=== PATIENT | female | born 1940 | race African-American/Black ===

== ENCOUNTER 2017-06-23 06:10 | Inpatient (IN) | payer MEDICAID ==
[~2017-06-23] VITALS: Ht 162.6 cm; Wt 78.1 kg
[~2017-06-23 06:10] MED LIST: ACET-2178 GT; ATOR40TA70 GT; CLOP75TA16 GT; DEXT15SY3 GT; FOLI-43 GT; HYDR-4133 GT; HYDR-523 GT; IPRA3AMP9 IH; KEPPSOL GT; LINA145C GT; LOSA100T14 GT; MAGN400C GT; METO-293 GT; MULT1TAB11 GT; POLY15DR40 BOTHEYE; POTA40LI2 GT; SACC250C GT; SENN8.6T60 GT; SIME1LIQ GT
[2017-06-23 07:32] LABS: BASOPHILS % 0.4 % (0.0-2.0); EOSINOPHILS % 0.1 % (0.0-5.0); HEMATOCRIT. 44.1 % (36.0-48.0); HEMOGLOBIN. 14.5 g/dL (12.0-16.0); LYMPHOCYTES % 8.8 % (20.0-50.0); MEAN CORPUSCULAR VOLUME 91.2 fL (81.0-99.0); MEAN PLATELET VOLUME 10.9 fl (7.4-10.4); MONOCYTES % 8.3 % (2.0-8.0); NEUTROPHILS % 82.4 % (40.0-76.0); PLATELET 143 x1000/uL (130-400); RED BLOOD CELL COUNT 4.83 mill/uL (4.2-5.4)
[2017-06-23 07:36] LABS: CHLORIDE 103 mEq/L (98-107)
[2017-06-23 07:44] LABS: CARBON DIOXIDE 33 mEq/L (21-32)
[2017-06-23] MEDS ORDERED: SODIUM CHLORIDE 0.9% 1,000 ML IV ONE (08:45)
[2017-06-23] MEDS ORDERED: KCL 20MEQ/100ML PREMIX 100 ML IV ONE (09:15)
[2017-06-23] MEDS ORDERED: POTASSIUM CHLORIDE INJ 20 MEQ in SODIUM CHLORIDE 0.9% 100 ML IV ONE (10:00)
[2017-06-23 10:30] VITALS: BP 158/86
[2017-06-23 11:00] VITALS: BP 136/70
[2017-06-23] MEDS ORDERED: ACETAMINOPHEN 325MG TABLET GT PRN (13:00)
[2017-06-23 15:34] LABS: CARBON DIOXIDE 32 mEq/L (21-32); CHLORIDE 105 mEq/L (98-107)
[2017-06-23 16:00] VITALS: BP 136/70
[2017-06-23] MEDS: DOCUSATE SODIUM SUGAR FREE 100MG/10ML UDC GT SCH (17:00)
[2017-06-23 20:00] VITALS: BP 131/65
[2017-06-23] MEDS ORDERED: IPRATROPIUM/ALBUTEROL 0.5-3(2.5)MG/3ML NEB INH PRN (20:00)
[2017-06-23] MEDS ORDERED: DIPHENHYDRAMINE 50MG/ML VIAL IV PRN (20:00)
[2017-06-23] MEDS ORDERED: ONDANSETRON HCL 4MG/2ML VIAL IV PRN (20:00)
[2017-06-23] MEDS ORDERED: DEXTROSE 50% WATER 50ML SYRINGE IV PRN (20:00)
[2017-06-23] MEDS ORDERED: LOPERAMIDE 2 MG/10 ML UDC GT PRN (20:15)
[2017-06-23] MEDS ORDERED: POTASSIUM CHLORIDE 20MEQ/PACKET GT NR (20:25)
[2017-06-23] MEDS ORDERED: MAGNESIUM 2 G PREMIX 50 ML IV PRN (20:30)
[2017-06-23] MEDS ORDERED: LEVETIRACETAM 500MG/5ML CUP GT SCH (21:00)
[2017-06-23] MEDS ORDERED: AMLODIPINE 5MG TABLET GT SCH (21:00)
[2017-06-23] MEDS: BLOOD SUGAR DIAGNOSTIC STRIP TEST SCH (21:49)
[2017-06-23] MEDS: LEVETIRACETAM 500MG/5ML CUP GT SCH (21:53)
[2017-06-23] MEDS: AMLODIPINE 5MG TABLET GT SCH (21:54)
[2017-06-23] MEDS: HEPARIN 5000 UNITS/ML VIAL SUBCUT SCH (21:57)
[2017-06-23] MEDS ORDERED: POTASSIUM CHLORIDE INJ 40 MEQ in DEXT 5% WATER 500 ML IV NR (22:00)
[2017-06-23] MEDS: INSULIN LISPRO 100 UNITS/ML SUBCUT SCH (22:12)
[2017-06-23] MEDS: LEVOFLOXACIN 500MG PREMIX 100 ML IV SCH (22:17)
[2017-06-23] MEDS: ACETAMINOPHEN 650MG/20.3ML UDC GT PRN (23:26)
[2017-06-24] VITALS: BP 126/65
[2017-06-24 01:20] LABS: CLARITY URINE CLEAR (CLEAR); COLOR URINE YELLOW (YELLOW); KETONES URINE NEGATIVE (NEGATIVE); LEUKOCYTE ESTERASE URINE NEGATIVE (NEGATIVE); NITRITE URINE NEGATIVE (NEGATIVE); OCCULT BLOOD URINE NEGATIVE (NEGATIVE); PROTEIN URINE 2+ (NEGATIVE); SPECIFIC GRAVITY URINE 1.024 (1.005-1.030)
[2017-06-24] MEDS: BLOOD SUGAR DIAGNOSTIC STRIP TEST SCH ×4 (02:45→17:43)
[2017-06-24] MEDS: INSULIN LISPRO 100 UNITS/ML SUBCUT SCH ×4 (02:55→17:50)
[2017-06-24 04:00] VITALS: BP 108/63
[2017-06-24] MEDS: IPRATROPIUM/ALBUTEROL 0.5-3(2.5)MG/3ML NEB HHN SCH ×5 (04:25→20:30)
[2017-06-24 08:00] VITALS: BP 126/73
[2017-06-24] MEDS: POLYVINYL ALCOHOL OPHTH DROPS 15ML BOTHEYE SCH ×3 (09:05→17:32)
[2017-06-24] MEDS: POTASSIUM CHLORIDE 20MEQ/PACKET GT SCH (09:06)
[2017-06-24] MEDS: AMLODIPINE 5MG TABLET GT SCH ×2 (09:06→21:00)
[2017-06-24] MEDS: DOCUSATE SODIUM SUGAR FREE 100MG/10ML UDC GT SCH ×2 (09:06→17:30)
[2017-06-24] MEDS: LEVETIRACETAM 500MG/5ML CUP GT SCH ×2 (09:06→21:21)
[2017-06-24] MEDS: FAMOTIDINE 20MG/2ML VIAL IV SCH (09:07)
[2017-06-24] MEDS: HEPARIN 5000 UNITS/ML VIAL SUBCUT SCH ×2 (09:07→21:22)
[2017-06-24 12:00] VITALS: BP 126/56
[2017-06-24] MEDS ORDERED: ACETYLCYSTEINE 200MG/ML 20% VIAL 4ML GT NR (12:00)
[2017-06-24] MEDS ORDERED: INSULIN LISPRO 100 UNITS/ML SUBCUT SCH (12:50)
[2017-06-24 16:00] VITALS: BP 138/75
[2017-06-24 20:00] VITALS: BP 99/51
[2017-06-24] MEDS: GUAIFENESIN 200MG/10ML SUGAR FREE UDC GT SCH (21:21)
[2017-06-24] MEDS: ACETAMINOPHEN 650MG/20.3ML UDC GT PRN (21:21)
[2017-06-24] MEDS: LEVOFLOXACIN 500MG PREMIX 100 ML IV SCH (22:01)
[2017-06-25] VITALS: BP_SYST 115; BP_SYST 118; BP_DIAS 65
[2017-06-25] MEDS: BLOOD SUGAR DIAGNOSTIC STRIP TEST SCH ×5 (00:29→23:37)
[2017-06-25] MEDS: INSULIN LISPRO 100 UNITS/ML SUBCUT SCH ×5 (00:34→23:18)
[2017-06-25] MEDS: ACETYLCYSTEINE 200MG/ML 20% VIAL 4ML INH SCH ×3 (01:12→21:03)
[2017-06-25] MEDS: GUAIFENESIN 200MG/10ML SUGAR FREE UDC GT SCH ×4 (02:30→21:27)
[2017-06-25] MEDS: IPRATROPIUM/ALBUTEROL 0.5-3(2.5)MG/3ML NEB HHN SCH ×3 (03:08→14:10)
[2017-06-25 04:00] VITALS: BP 127/70
[2017-06-25 08:00] VITALS: BP 138/61
[2017-06-25] MEDS: LEVETIRACETAM 500MG/5ML CUP GT SCH ×2 (10:06→21:28)
[2017-06-25] MEDS: FAMOTIDINE 20MG/2ML VIAL IV SCH (10:07)
[2017-06-25] MEDS: DOCUSATE SODIUM SUGAR FREE 100MG/10ML UDC GT SCH ×2 (10:07→17:00)
[2017-06-25] MEDS: POTASSIUM CHLORIDE 20MEQ/PACKET GT SCH (10:08)
[2017-06-25] MEDS: HEPARIN 5000 UNITS/ML VIAL SUBCUT SCH ×2 (10:10→21:28)
[2017-06-25] MEDS: POLYVINYL ALCOHOL OPHTH DROPS 15ML BOTHEYE SCH ×3 (10:20→17:12)
[2017-06-25] MEDS: AMLODIPINE 5MG TABLET GT SCH ×2 (10:20→21:27)
[2017-06-25 12:00] VITALS: BP 106/55
[2017-06-25 20:00] VITALS: BP 133/63
[2017-06-25] MEDS: LEVOFLOXACIN 500MG PREMIX 100 ML IV SCH (21:27)
[2017-06-25] MEDS: OSELTAMIVIR PHOSPHATE 6 MG/1 ML GT SCH (21:28)
[2017-06-25] MEDS ORDERED: INSULIN DETEMIR UD 100 UNITS/ML SYR SUBCUT SCH (22:00)
[2017-06-25] MEDS: METHYLPREDNISOLONE SOD SUCC 125 MG/2 ML VIAL IV SCH (22:59)
[2017-06-25] MEDS: INSULIN DETEMIR UD 100 UNITS/ML SYR SUBCUT SCH (23:18)
[2017-06-26] VITALS: BP 122/76
[2017-06-26 00:28] LABS: BASOPHILS % 0.4 % (0.0-2.0); EOSINOPHILS % 1.2 % (0.0-5.0); HEMATOCRIT. 36.7 % (36.0-48.0); HEMOGLOBIN. 11.7 g/dL (12.0-16.0); LYMPHOCYTES % 19.2 % (20.0-50.0); MEAN CORPUSCULAR HEMOGLOBIN 29.3 pg (28.0-32.0); MEAN CORPUSCULAR VOLUME 91.3 fL (81.0-99.0); MEAN PLATELET VOLUME 12.5 fl (7.4-10.4); MONOCYTES % 14.3 % (2.0-8.0); NEUTROPHILS % 64.9 % (40.0-76.0); PLATELET 137 x1000/uL (130-400); RED BLOOD CELL COUNT 4.01 mill/uL (4.2-5.4); RED CELL DISTRIBUTION WIDTH 13.2 % (11.6-14.6)
[2017-06-26 00:52] LABS: CARBON DIOXIDE 31 mEq/L (21-32); CHLORIDE 113 mEq/L (98-107)
[2017-06-26] MEDS: IPRATROPIUM/ALBUTEROL 0.5-3(2.5)MG/3ML NEB HHN SCH ×4 (01:10→21:15)
[2017-06-26] MEDS: ACETYLCYSTEINE 200MG/ML 20% VIAL 4ML INH SCH ×2 (01:12→14:55)
[2017-06-26] MEDS: GUAIFENESIN 200MG/10ML SUGAR FREE UDC GT SCH ×4 (03:08→20:42)
[2017-06-26 04:00] VITALS: BP 136/66
[2017-06-26] MEDS: METHYLPREDNISOLONE SOD SUCC 125 MG/2 ML VIAL IV SCH ×3 (06:40→22:06)
[2017-06-26] MEDS: INSULIN LISPRO 100 UNITS/ML SUBCUT SCH ×3 (06:42→18:34)
[2017-06-26] MEDS: BLOOD SUGAR DIAGNOSTIC STRIP TEST SCH ×3 (06:49→18:28)
[2017-06-26 08:00] VITALS: BP 121/62
[2017-06-26] MEDS: OSELTAMIVIR PHOSPHATE 6 MG/1 ML GT SCH ×2 (09:00→20:42)
[2017-06-26] MEDS: LEVETIRACETAM 500MG/5ML CUP GT SCH ×2 (09:07→20:44)
[2017-06-26] MEDS: DOCUSATE SODIUM SUGAR FREE 100MG/10ML UDC GT SCH ×2 (09:07→18:24)
[2017-06-26] MEDS: POLYVINYL ALCOHOL OPHTH DROPS 15ML BOTHEYE SCH ×3 (09:08→18:25)
[2017-06-26] MEDS: POTASSIUM CHLORIDE 20MEQ/PACKET GT SCH (09:08)
[2017-06-26] MEDS: FAMOTIDINE 20MG/2ML VIAL IV SCH (09:08)
[2017-06-26] MEDS: HEPARIN 5000 UNITS/ML VIAL SUBCUT SCH ×2 (09:09→20:42)
[2017-06-26] MEDS: AMLODIPINE 5MG TABLET GT SCH ×2 (11:39→22:05)
[2017-06-26 12:00] VITALS: BP 145/60
[2017-06-26 16:00] VITALS: BP 112/58
[2017-06-26] MEDS ORDERED: SODIUM CHLORIDE 0.45% 1,000 ML IV SCH (18:30)
[2017-06-26 20:00] VITALS: BP 144/60
[2017-06-26] MEDS: LEVOFLOXACIN 500MG PREMIX 100 ML IV SCH (22:20)
[2017-06-26] MEDS: INSULIN DETEMIR UD 100 UNITS/ML SYR SUBCUT SCH (22:23)
[2017-06-27] VITALS: BP 141/71
[2017-06-27] MEDS: INSULIN LISPRO 100 UNITS/ML SUBCUT SCH ×5 (00:24→23:49)
[2017-06-27] MEDS: BLOOD SUGAR DIAGNOSTIC STRIP TEST SCH ×5 (00:24→23:17)
[2017-06-27] MEDS: GUAIFENESIN 200MG/10ML SUGAR FREE UDC GT SCH ×4 (02:06→23:20)
[2017-06-27] MEDS: ACETYLCYSTEINE 200MG/ML 20% VIAL 4ML INH SCH ×3 (02:10→16:22)
[2017-06-27] MEDS: IPRATROPIUM/ALBUTEROL 0.5-3(2.5)MG/3ML NEB HHN SCH ×4 (02:10→21:25)
[2017-06-27 04:00] VITALS: BP 138/68
[2017-06-27] MEDS: METHYLPREDNISOLONE SOD SUCC 125 MG/2 ML VIAL IV SCH ×3 (06:50→22:35)
[2017-06-27 08:00] VITALS: BP 151/66
[2017-06-27] MEDS: LEVETIRACETAM 500MG/5ML CUP GT SCH ×2 (08:46→23:26)
[2017-06-27] MEDS: DOCUSATE SODIUM SUGAR FREE 100MG/10ML UDC GT SCH ×2 (08:46→17:42)
[2017-06-27] MEDS: FAMOTIDINE 20MG/2ML VIAL IV SCH (08:47)
[2017-06-27] MEDS: POLYVINYL ALCOHOL OPHTH DROPS 15ML BOTHEYE SCH ×3 (08:47→17:42)
[2017-06-27] MEDS: POTASSIUM CHLORIDE 20MEQ/PACKET GT SCH (08:48)
[2017-06-27] MEDS: OSELTAMIVIR PHOSPHATE 6 MG/1 ML GT SCH ×2 (08:49→23:19)
[2017-06-27] MEDS: ACETAMINOPHEN 650MG/20.3ML UDC GT PRN ×2 (08:50→23:26)
[2017-06-27] MEDS: HEPARIN 5000 UNITS/ML VIAL SUBCUT SCH ×2 (08:51→23:27)
[2017-06-27] MEDS: AMLODIPINE 5MG TABLET GT SCH ×2 (08:57→23:25)
[2017-06-27 11:44] LABS: CARBON DIOXIDE 31 mEq/L (21-32); CHLORIDE 110 mEq/L (98-107)
[2017-06-27 12:00] VITALS: BP 136/64
[2017-06-27 16:00] VITALS: BP 139/68
[2017-06-27 20:00] VITALS: BP 162/81
[2017-06-27] MEDS ORDERED: ACETYLCYSTEINE 100MG/ML 10% VIAL 4ML INH SCH (22:00)
[2017-06-27] MEDS: LEVOFLOXACIN 500MG PREMIX 100 ML IV SCH (22:35)
[2017-06-27] MEDS: CLONIDINE 0.1MG TABLET GT PRN (23:25)
[2017-06-27] MEDS: INSULIN DETEMIR UD 100 UNITS/ML SYR SUBCUT SCH (23:32)
[2017-06-28] VITALS: BP 131/89
[2017-06-28] MEDS: IPRATROPIUM/ALBUTEROL 0.5-3(2.5)MG/3ML NEB HHN SCH ×4 (03:58→20:53)
[2017-06-28 04:00] VITALS: BP 139/64
[2017-06-28] MEDS ORDERED: DEXT 5% WATER 500 ML IV ONE (06:30)
[2017-06-28] MEDS: GUAIFENESIN 200MG/10ML SUGAR FREE UDC GT SCH ×4 (07:29→21:30)
[2017-06-28] MEDS: BLOOD SUGAR DIAGNOSTIC STRIP TEST SCH ×4 (07:30→23:13)
[2017-06-28 08:00] VITALS: BP 151/79
[2017-06-28] MEDS: POLYVINYL ALCOHOL OPHTH DROPS 15ML BOTHEYE SCH ×3 (08:02→17:36)
[2017-06-28] MEDS: LEVETIRACETAM 500MG/5ML CUP GT SCH ×2 (08:02→21:31)
[2017-06-28] MEDS: DOCUSATE SODIUM SUGAR FREE 100MG/10ML UDC GT SCH ×2 (08:02→17:36)
[2017-06-28] MEDS: AMLODIPINE 5MG TABLET GT SCH ×2 (08:02→22:34)
[2017-06-28] MEDS: HEPARIN 5000 UNITS/ML VIAL SUBCUT SCH ×2 (08:03→21:31)
[2017-06-28] MEDS: FAMOTIDINE 20MG/2ML VIAL IV SCH (08:03)
[2017-06-28] MEDS: OSELTAMIVIR PHOSPHATE 6 MG/1 ML GT SCH ×2 (08:03→21:31)
[2017-06-28] MEDS: INSULIN LISPRO 100 UNITS/ML SUBCUT SCH ×4 (08:06→23:13)
[2017-06-28] MEDS: ACETAMINOPHEN 650MG/20.3ML UDC GT PRN (09:33)
[2017-06-28 12:00] VITALS: BP 146/66
[2017-06-28 16:00] VITALS: BP 148/75
[2017-06-28 19:03] LABS: CARBON DIOXIDE 34 mEq/L (21-32); CHLORIDE 105 mEq/L (98-107)
[2017-06-28 20:00] VITALS: BP 131/65
[2017-06-28] MEDS: LEVOFLOXACIN 500MG PREMIX 100 ML IV SCH (21:30)
[2017-06-28] MEDS ORDERED: POTASSIUM CHLORIDE 20MEQ/PACKET GT NR (21:51)
[2017-06-28] MEDS: INSULIN DETEMIR UD 100 UNITS/ML SYR SUBCUT SCH (23:13)
[2017-06-29] VITALS: BP 132/70
[2017-06-29] MEDS: IPRATROPIUM/ALBUTEROL 0.5-3(2.5)MG/3ML NEB HHN SCH ×4 (01:38→20:25)
[2017-06-29] MEDS: GUAIFENESIN 200MG/10ML SUGAR FREE UDC GT SCH ×4 (03:00→20:22)
[2017-06-29 04:00] VITALS: BP 161/95
[2017-06-29] MEDS: CLONIDINE 0.1MG TABLET GT PRN (05:18)
[2017-06-29] MEDS: BLOOD SUGAR DIAGNOSTIC STRIP TEST SCH ×4 (05:25→23:04)
[2017-06-29] MEDS: INSULIN LISPRO 100 UNITS/ML SUBCUT SCH ×4 (06:01→23:04)
[2017-06-29 08:00] VITALS: BP 125/72
[2017-06-29] MEDS: POLYVINYL ALCOHOL OPHTH DROPS 15ML BOTHEYE SCH ×3 (08:31→16:11)
[2017-06-29] MEDS: DOCUSATE SODIUM SUGAR FREE 100MG/10ML UDC GT SCH ×2 (08:31→16:11)
[2017-06-29] MEDS: LEVETIRACETAM 500MG/5ML CUP GT SCH ×2 (08:31→20:24)
[2017-06-29] MEDS: AMLODIPINE 5MG TABLET GT SCH ×2 (08:32→20:22)
[2017-06-29] MEDS: FAMOTIDINE 20MG/2ML VIAL IV SCH (08:32)
[2017-06-29] MEDS: HEPARIN 5000 UNITS/ML VIAL SUBCUT SCH ×2 (08:32→22:04)
[2017-06-29] MEDS: OSELTAMIVIR PHOSPHATE 6 MG/1 ML GT SCH ×2 (08:32→20:23)
[2017-06-29] MEDS: ACETAMINOPHEN 650MG/20.3ML UDC GT PRN (08:37)
[2017-06-29 12:00] VITALS: BP 122/67
[2017-06-29 16:00] VITALS: BP 124/67
[2017-06-29] MEDS ORDERED: POTASSIUM CHLORIDE 20MEQ/PACKET GT NR (19:30)
[2017-06-29 20:00] VITALS: BP 142/79
[2017-06-29] MEDS: LEVOFLOXACIN 500MG PREMIX 100 ML IV SCH (22:04)
[2017-06-29] MEDS: INSULIN DETEMIR UD 100 UNITS/ML SYR SUBCUT SCH (23:04)
[2017-06-30] VITALS: BP 115/74
[2017-06-30] MEDS: IPRATROPIUM/ALBUTEROL 0.5-3(2.5)MG/3ML NEB HHN SCH ×4 (01:11→21:34)
[2017-06-30] MEDS: GUAIFENESIN 200MG/10ML SUGAR FREE UDC GT SCH ×4 (02:20→21:12)
[2017-06-30 04:00] VITALS: BP 131/78
[2017-06-30] MEDS: BLOOD SUGAR DIAGNOSTIC STRIP TEST SCH ×3 (06:03→17:34)
[2017-06-30] MEDS: INSULIN LISPRO 100 UNITS/ML SUBCUT SCH ×3 (06:05→17:36)
[2017-06-30 07:22] LABS: HEMATOCRIT 37.7 % (36.0-48.0); HEMOGLOBIN 12.3 g/dL (12.0-16.0); MEAN CORPUSCULAR HEMOGLOBIN 29.7 pg (28.0-32.0); PLATELET 167 x1000/uL (130-400); RED BLOOD CELL COUNT 4.15 mill/uL (4.2-5.4); RED CELL DISTRIBUTION WIDTH 13.7 % (11.6-14.6)
[2017-06-30 07:54] LABS: CARBON DIOXIDE 36 mEq/L (21-32); CHLORIDE 106 mEq/L (98-107)
[2017-06-30 08:00] VITALS: BP 119/71
[2017-06-30] MEDS: DOCUSATE SODIUM SUGAR FREE 100MG/10ML UDC GT SCH ×2 (09:23→21:27)
[2017-06-30] MEDS: LEVETIRACETAM 500MG/5ML CUP GT SCH ×2 (09:23→21:12)
[2017-06-30] MEDS: AMLODIPINE 5MG TABLET GT SCH ×2 (09:23→21:13)
[2017-06-30] MEDS: OSELTAMIVIR PHOSPHATE 6 MG/1 ML GT SCH (09:24)
[2017-06-30] MEDS: FAMOTIDINE 20MG/2ML VIAL IV SCH (09:24)
[2017-06-30] MEDS: POLYVINYL ALCOHOL OPHTH DROPS 15ML BOTHEYE SCH ×3 (09:28→21:12)
[2017-06-30] MEDS: HEPARIN 5000 UNITS/ML VIAL SUBCUT SCH ×2 (09:28→21:13)
[2017-06-30 12:00] VITALS: BP 114/63
[2017-06-30 16:00] VITALS: BP 123/72
[2017-06-30 20:00] VITALS: BP 133/67
[2017-06-30] MEDS: LEVOFLOXACIN 500MG PREMIX 100 ML IV SCH (21:14)
[2017-07-01] VITALS: BP 123/73
[2017-07-01] MEDS: BLOOD SUGAR DIAGNOSTIC STRIP TEST SCH ×5 (00:18→23:10)
[2017-07-01] MEDS: INSULIN LISPRO 100 UNITS/ML SUBCUT SCH ×5 (00:23→23:26)
[2017-07-01] MEDS: INSULIN DETEMIR UD 100 UNITS/ML SYR SUBCUT SCH ×2 (00:23→23:26)
[2017-07-01] MEDS: IPRATROPIUM/ALBUTEROL 0.5-3(2.5)MG/3ML NEB HHN SCH ×4 (02:02→21:00)
[2017-07-01] MEDS: GUAIFENESIN 200MG/10ML SUGAR FREE UDC GT SCH ×4 (02:42→20:14)
[2017-07-01 04:00] VITALS: BP 141/78
[2017-07-01 08:00] VITALS: BP_SYST 57
[2017-07-01] MEDS: LEVETIRACETAM 500MG/5ML CUP GT SCH ×2 (08:19→20:15)
[2017-07-01] MEDS: DOCUSATE SODIUM SUGAR FREE 100MG/10ML UDC GT SCH ×2 (08:19→18:03)
[2017-07-01] MEDS: FAMOTIDINE 20MG/2ML VIAL IV SCH (08:19)
[2017-07-01] MEDS: AMLODIPINE 5MG TABLET GT SCH ×2 (08:33→20:15)
[2017-07-01] MEDS: HEPARIN 5000 UNITS/ML VIAL SUBCUT SCH ×2 (08:34→21:29)
[2017-07-01 12:00] VITALS: BP 114/63
[2017-07-01] MEDS: POLYVINYL ALCOHOL OPHTH DROPS 15ML BOTHEYE SCH ×2 (13:09→18:03)
[2017-07-01 16:00] VITALS: BP 127/67
[2017-07-01 20:00] VITALS: BP 112/58
[2017-07-02] VITALS: BP 113/57
[2017-07-02] MEDS: GUAIFENESIN 200MG/10ML SUGAR FREE UDC GT SCH ×4 (02:10→21:36)
[2017-07-02] MEDS: IPRATROPIUM/ALBUTEROL 0.5-3(2.5)MG/3ML NEB HHN SCH ×4 (02:56→21:04)
[2017-07-02 04:00] VITALS: BP 114/56
[2017-07-02] MEDS: BLOOD SUGAR DIAGNOSTIC STRIP TEST SCH ×4 (05:48→23:16)
[2017-07-02] MEDS: INSULIN LISPRO 100 UNITS/ML SUBCUT SCH ×4 (05:49→23:16)
[2017-07-02 08:00] VITALS: BP 120/64
[2017-07-02] MEDS: LEVETIRACETAM 500MG/5ML CUP GT SCH ×2 (09:15→21:36)
[2017-07-02] MEDS: FAMOTIDINE 20MG/2ML VIAL IV SCH (09:16)
[2017-07-02] MEDS: HEPARIN 5000 UNITS/ML VIAL SUBCUT SCH ×2 (09:16→21:42)
[2017-07-02] MEDS: DOCUSATE SODIUM SUGAR FREE 100MG/10ML UDC GT SCH ×2 (09:16→17:00)
[2017-07-02] MEDS: AMLODIPINE 5MG TABLET GT SCH ×2 (09:16→21:37)
[2017-07-02] MEDS: POLYVINYL ALCOHOL OPHTH DROPS 15ML BOTHEYE SCH ×3 (09:17→17:18)
[2017-07-02 12:00] VITALS: BP 104/59
[2017-07-02 16:00] VITALS: BP 121/65
[2017-07-02 20:00] VITALS: BP 111/60
[2017-07-02] MEDS ORDERED: SODIUM CHL 0.45% + KCL 20MEQ/L 1,000 ML IV SCH (20:00)
[2017-07-02] MEDS: INSULIN DETEMIR UD 100 UNITS/ML SYR SUBCUT SCH (22:00)
[2017-07-03] VITALS: BP 105/65
[2017-07-03] MEDS: IPRATROPIUM/ALBUTEROL 0.5-3(2.5)MG/3ML NEB HHN SCH ×4 (01:32→20:06)
[2017-07-03] MEDS: GUAIFENESIN 200MG/10ML SUGAR FREE UDC GT SCH ×4 (02:36→20:00)
[2017-07-03 04:00] VITALS: BP 124/62
[2017-07-03] MEDS: INSULIN LISPRO 100 UNITS/ML SUBCUT SCH ×4 (05:32→23:18)
[2017-07-03] MEDS: BLOOD SUGAR DIAGNOSTIC STRIP TEST SCH ×4 (05:32→23:18)
[2017-07-03 07:40] LABS: HEMATOCRIT. 38.5 % (36.0-48.0); HEMOGLOBIN. 12.7 g/dL (12.0-16.0); MEAN CORPUSCULAR HEMOGLOBIN 30.3 pg (28.0-32.0); MEAN CORPUSCULAR VOLUME 92.1 fL (81.0-99.0); MEAN PLATELET VOLUME 11.9 fl (7.4-10.4); PLATELET 166 x1000/uL (130-400); RED BLOOD CELL COUNT 4.18 mill/uL (4.2-5.4); RED CELL DISTRIBUTION WIDTH 13.7 % (11.6-14.6)
[2017-07-03 08:00] VITALS: BP 127/62
[2017-07-03 08:30] LABS: CARBON DIOXIDE 35 mEq/L (21-32); CHLORIDE 107 mEq/L (98-107)
[2017-07-03] MEDS: AMLODIPINE 5MG TABLET GT SCH ×2 (09:00→21:00)
[2017-07-03] MEDS: DOCUSATE SODIUM SUGAR FREE 100MG/10ML UDC GT SCH ×2 (09:00→17:00)
[2017-07-03] MEDS: LEVETIRACETAM 500MG/5ML CUP GT SCH ×2 (09:00→21:00)
[2017-07-03] MEDS: FAMOTIDINE 20MG/2ML VIAL IV SCH (11:53)
[2017-07-03] MEDS: HEPARIN 5000 UNITS/ML VIAL SUBCUT SCH ×2 (11:53→23:09)
[2017-07-03 12:00] VITALS: BP 117/63
[2017-07-03] MEDS: POLYVINYL ALCOHOL OPHTH DROPS 15ML BOTHEYE SCH ×2 (12:49→17:22)
[2017-07-03] MEDS ORDERED: POTASSIUM CHLORIDE INJ 40 MEQ in DEXT 5% WATER 500 ML IV NR (15:00)
[2017-07-03 16:00] VITALS: BP 122/62
[2017-07-03 16:10] LABS: CARBON DIOXIDE 37 mEq/L (21-32); CHLORIDE 106 mEq/L (98-107)
[2017-07-03 20:00] VITALS: BP 154/77
[2017-07-03 22:28] LABS: CARBON DIOXIDE 37 mEq/L (21-32); CHLORIDE 105 mEq/L (98-107)
[2017-07-03] MEDS: DEXT 5%/0.45% NACL KCL 20MEQ/L 1,000 ML IV SCH (22:41)
[2017-07-03] MEDS: INSULIN DETEMIR UD 100 UNITS/ML SYR SUBCUT SCH (23:17)
[2017-07-04] VITALS: BP 150/74
[2017-07-04] MEDS: IPRATROPIUM/ALBUTEROL 0.5-3(2.5)MG/3ML NEB HHN SCH ×4 (01:00→21:54)
[2017-07-04] MEDS: GUAIFENESIN 200MG/10ML SUGAR FREE UDC GT SCH ×4 (02:00→20:00)
[2017-07-04 04:00] VITALS: BP 106/70
[2017-07-04] MEDS: INSULIN LISPRO 100 UNITS/ML SUBCUT SCH ×3 (06:00→18:00)
[2017-07-04] MEDS: BLOOD SUGAR DIAGNOSTIC STRIP TEST SCH ×3 (06:00→18:00)
[2017-07-04 06:48] LABS: PLATELET ESTIMATE NORMAL
[2017-07-04] MEDS: DOCUSATE SODIUM SUGAR FREE 100MG/10ML UDC GT SCH ×2 (09:00→17:00)
[2017-07-04] MEDS: AMLODIPINE 5MG TABLET GT SCH ×2 (09:00→21:00)
[2017-07-04] MEDS: LEVETIRACETAM 500MG/5ML CUP GT SCH ×2 (09:00→21:00)
[2017-07-04] MEDS: FAMOTIDINE 20MG/2ML VIAL IV SCH (09:12)
[2017-07-04] MEDS: HEPARIN 5000 UNITS/ML VIAL SUBCUT SCH ×2 (09:16→21:48)
[2017-07-04] MEDS: POLYVINYL ALCOHOL OPHTH DROPS 15ML BOTHEYE SCH ×3 (09:26→16:41)
[2017-07-04] MEDS: DEXTROSE 50% WATER 50ML SYRINGE IV PRN (12:38)
[2017-07-04 12:53] LABS: CARBON DIOXIDE 38 mEq/L (21-32); CHLORIDE 106 mEq/L (98-107)
[2017-07-04] MEDS ORDERED: IOHEXOL-300 100 ML BOTTLE ONE (14:50)
[2017-07-04] MEDS ORDERED: DIATR MEGLU/DIATRIZOATE SOLN 30ML ONE (14:53)
[2017-07-04] MEDS ORDERED: POTASSIUM CHLORIDE INJ 40 MEQ in DEXT 5% WATER 500 ML IV NR ×2 (15:30→20:30)
[2017-07-04 16:00] VITALS: BP 143/70
[2017-07-04 20:00] VITALS: BP 142/74
[2017-07-04] MEDS: INSULIN DETEMIR UD 100 UNITS/ML SYR SUBCUT SCH (22:18)
[2017-07-04 22:25] LABS: CARBON DIOXIDE 35 mEq/L (21-32); CHLORIDE 104 mEq/L (98-107)
[2017-07-05] VITALS (7 sets, daily range): BP systolic 104–142; BP diastolic 56–73
[2017-07-05] MEDS: DEXT 5%/0.45% NACL KCL 20MEQ/L 1,000 ML IV SCH ×2 (01:19→17:25)
[2017-07-05] MEDS: GUAIFENESIN 200MG/10ML SUGAR FREE UDC GT SCH ×4 (02:00→20:00)
[2017-07-05] MEDS: IPRATROPIUM/ALBUTEROL 0.5-3(2.5)MG/3ML NEB HHN SCH ×4 (03:11→21:35)
[2017-07-05] MEDS: DEXTROSE 50% WATER 50ML SYRINGE IV PRN ×2 (05:41→12:46)
[2017-07-05] MEDS: BLOOD SUGAR DIAGNOSTIC STRIP TEST SCH ×5 (06:26→23:27)
[2017-07-05] MEDS: INSULIN LISPRO 100 UNITS/ML SUBCUT SCH ×5 (06:50→23:27)
[2017-07-05 07:54] LABS: BASOPHILS % 0.3 % (0.0-2.0); EOSINOPHILS % 1.7 % (0.0-5.0); HEMATOCRIT. 38.9 % (36.0-48.0); LYMPHOCYTES % 13.9 % (20.0-50.0); MEAN CORPUSCULAR HEMOGLOBIN 30.3 pg (28.0-32.0); MEAN CORPUSCULAR VOLUME 90.8 fL (81.0-99.0); MEAN PLATELET VOLUME 12.2 fl (7.4-10.4); MONOCYTES % 13.3 % (2.0-8.0); NEUTROPHILS % 70.8 % (40.0-76.0); PLATELET 157 x1000/uL (130-400); RED BLOOD CELL COUNT 4.29 mill/uL (4.2-5.4); RED CELL DISTRIBUTION WIDTH 13.5 % (11.6-14.6)
[2017-07-05 08:53] LABS: CHLORIDE 103 mEq/L (98-107)
[2017-07-05] MEDS: DOCUSATE SODIUM SUGAR FREE 100MG/10ML UDC GT SCH ×2 (09:00→17:00)
[2017-07-05] MEDS: LEVETIRACETAM 500MG/5ML CUP GT SCH ×2 (09:00→21:00)
[2017-07-05] MEDS: AMLODIPINE 5MG TABLET GT SCH ×2 (09:00→21:00)
[2017-07-05 09:32] LABS: CARBON DIOXIDE 29 mEq/L (21-32)
[2017-07-05] MEDS: FAMOTIDINE 20MG/2ML VIAL IV SCH (09:53)
[2017-07-05] MEDS: POLYVINYL ALCOHOL OPHTH DROPS 15ML BOTHEYE SCH ×3 (09:53→17:00)
[2017-07-05] MEDS: HEPARIN 5000 UNITS/ML VIAL SUBCUT SCH ×2 (09:54→21:47)
[2017-07-05] MEDS ORDERED: NA PHOS,M-B/NA PHOS,DI-BA ENEMA 118ML PR NR ×2 (14:30→20:30)
[2017-07-06] VITALS: BP 139/68
[2017-07-06] MEDS: IPRATROPIUM/ALBUTEROL 0.5-3(2.5)MG/3ML NEB HHN SCH ×4 (01:06→19:57)
[2017-07-06] MEDS: GUAIFENESIN 200MG/10ML SUGAR FREE UDC GT SCH ×4 (01:24→19:50)
[2017-07-06 04:00] VITALS: BP 134/71
[2017-07-06] MEDS: INSULIN LISPRO 100 UNITS/ML SUBCUT SCH ×3 (06:00→18:00)
[2017-07-06] MEDS: BLOOD SUGAR DIAGNOSTIC STRIP TEST SCH ×3 (06:00→18:04)
[2017-07-06 08:00] VITALS: BP 149/74
[2017-07-06] MEDS: AMLODIPINE 5MG TABLET GT SCH ×2 (09:00→21:00)
[2017-07-06] MEDS: DOCUSATE SODIUM SUGAR FREE 100MG/10ML UDC GT SCH ×2 (09:00→17:00)
[2017-07-06] MEDS: LEVETIRACETAM 500MG/5ML CUP GT SCH (09:00)
[2017-07-06] MEDS: HEPARIN 5000 UNITS/ML VIAL SUBCUT SCH ×2 (09:46→21:10)
[2017-07-06] MEDS: POLYVINYL ALCOHOL OPHTH DROPS 15ML BOTHEYE SCH ×3 (09:46→17:00)
[2017-07-06] MEDS: FAMOTIDINE 20MG/2ML VIAL IV SCH (09:46)
[2017-07-06] MEDS: DEXT 5%/0.45% NACL KCL 20MEQ/L 1,000 ML IV SCH (11:50)
[2017-07-06] MEDS: BISACODYL 10MG SUPP PR SCH (11:50)
[2017-07-06 12:00] VITALS: BP 134/67
[2017-07-06 12:48] LABS: HEMATOCRIT. 35.8 % (36.0-48.0); HEMOGLOBIN. 11.9 g/dL (12.0-16.0); MEAN CORPUSCULAR HEMOGLOBIN 30.1 pg (28.0-32.0); MEAN CORPUSCULAR VOLUME 90.4 fL (81.0-99.0); PLATELET 140 x1000/uL (130-400); RED BLOOD CELL COUNT 3.96 mill/uL (4.2-5.4); RED CELL DISTRIBUTION WIDTH 13.1 % (11.6-14.6)
[2017-07-06 12:59] LABS: CARBON DIOXIDE 34 mEq/L (21-32); CHLORIDE 103 mEq/L (98-107)
[2017-07-06] MEDS: LEVETIRACETAM 750 MG in SODIUM CHLORIDE 0.9% 100 ML IV SCH (13:57)
[2017-07-06 14:09] LABS: PLATELET ESTIMATE NORMAL
[2017-07-06 16:00] VITALS: BP 119/59
[2017-07-06] MEDS ORDERED: KCL 20MEQ/100ML PREMIX 100 ML IV NR ×2 (18:00→20:00)
[2017-07-06 20:00] VITALS: BP 149/78
[2017-07-07] VITALS: BP 118/60
[2017-07-07] MEDS: IPRATROPIUM/ALBUTEROL 0.5-3(2.5)MG/3ML NEB HHN SCH ×5 (00:26→21:37)
[2017-07-07] MEDS: BLOOD SUGAR DIAGNOSTIC STRIP TEST SCH ×4 (00:54→18:12)
[2017-07-07] MEDS: GUAIFENESIN 200MG/10ML SUGAR FREE UDC GT SCH ×4 (01:15→20:00)
[2017-07-07] MEDS: LEVETIRACETAM 750 MG in SODIUM CHLORIDE 0.9% 100 ML IV SCH ×2 (01:52→16:28)
[2017-07-07 04:00] VITALS: BP 102/54
[2017-07-07] MEDS: INSULIN LISPRO 100 UNITS/ML SUBCUT SCH ×4 (06:00→18:00)
[2017-07-07] MEDS ORDERED: KCL 20MEQ/100ML PREMIX 100 ML IV ONE ×2 (07:45)
[2017-07-07 08:00] VITALS: BP 120/65
[2017-07-07] MEDS: AMLODIPINE 5MG TABLET GT SCH ×2 (09:00→21:00)
[2017-07-07] MEDS: DOCUSATE SODIUM SUGAR FREE 100MG/10ML UDC GT SCH ×2 (09:00→16:27)
[2017-07-07] MEDS: HEPARIN 5000 UNITS/ML VIAL SUBCUT SCH ×2 (09:46→22:49)
[2017-07-07] MEDS: POLYVINYL ALCOHOL OPHTH DROPS 15ML BOTHEYE SCH ×3 (09:46→16:36)
[2017-07-07] MEDS: FAMOTIDINE 20MG/2ML VIAL IV SCH (09:47)
[2017-07-07] MEDS: BISACODYL 10MG SUPP PR SCH (09:47)
[2017-07-07] MEDS ORDERED: POTASSIUM CHLORIDE INJ 40 MEQ in DEXT 5% WATER 500 ML IV NR (10:00)
[2017-07-07 12:00] VITALS: BP 123/66
[2017-07-07 16:00] VITALS: BP 129/61
[2017-07-07] MEDS: DEXT 5%/0.45% NACL KCL 20MEQ/L 1,000 ML IV SCH (16:28)
[2017-07-08] MEDS: GUAIFENESIN 200MG/10ML SUGAR FREE UDC GT SCH ×4 (01:26→20:00)
[2017-07-08] MEDS: LEVETIRACETAM 750 MG in SODIUM CHLORIDE 0.9% 100 ML IV SCH ×2 (01:27→12:42)
[2017-07-08] MEDS: DEXT 5%/0.45% NACL KCL 20MEQ/L 1,000 ML IV SCH ×2 (01:27→12:49)
[2017-07-08] MEDS: IPRATROPIUM/ALBUTEROL 0.5-3(2.5)MG/3ML NEB HHN SCH ×4 (02:17→21:40)
[2017-07-08] MEDS: INSULIN LISPRO 100 UNITS/ML SUBCUT SCH ×4 (06:00→18:00)
[2017-07-08 06:19] LABS: HEMATOCRIT. 37.8 % (36.0-48.0); HEMOGLOBIN. 12.2 g/dL (12.0-16.0); MEAN CORPUSCULAR HEMOGLOBIN 29.5 pg (28.0-32.0); MEAN CORPUSCULAR VOLUME 91.4 fL (81.0-99.0); MEAN PLATELET VOLUME 12.2 fl (7.4-10.4); PLATELET 135 x1000/uL (130-400); RED BLOOD CELL COUNT 4.13 mill/uL (4.2-5.4); RED CELL DISTRIBUTION WIDTH 13.6 % (11.6-14.6)
[2017-07-08] MEDS: BLOOD SUGAR DIAGNOSTIC STRIP TEST SCH ×4 (06:38→18:17)
[2017-07-08 08:00] VITALS: BP 118/66
[2017-07-08 08:23] LABS: CARBON DIOXIDE 29 mEq/L (21-32); CHLORIDE 102 mEq/L (98-107)
[2017-07-08] MEDS: DOCUSATE SODIUM SUGAR FREE 100MG/10ML UDC GT SCH ×2 (09:00→17:00)
[2017-07-08] MEDS: AMLODIPINE 5MG TABLET GT SCH ×2 (09:00→21:00)
[2017-07-08] MEDS: POLYVINYL ALCOHOL OPHTH DROPS 15ML BOTHEYE SCH ×3 (09:54→18:16)
[2017-07-08] MEDS: FAMOTIDINE 20MG/2ML VIAL IV SCH (09:54)
[2017-07-08] MEDS: HEPARIN 5000 UNITS/ML VIAL SUBCUT SCH ×2 (09:54→22:17)
[2017-07-08] MEDS: BISACODYL 10MG SUPP PR SCH (09:55)
[2017-07-08 12:00] VITALS: BP 104/54
[2017-07-08] MEDS ORDERED: POTASSIUM CHLORIDE INJ 40 MEQ in DEXT 5% WATER 250 ML IV SCH (14:00)
[2017-07-08 15:27] LABS: PLATELET ESTIMATE NORMAL
[2017-07-08 16:00] VITALS: BP 129/73
[2017-07-08 20:00] VITALS: BP 114/59
[2017-07-08] MEDS: LEVOFLOXACIN 500MG PREMIX 100 ML IV SCH (22:18)
[2017-07-09] VITALS (7 sets, daily range): BP systolic 117–162; BP diastolic 57–86
[2017-07-09] MEDS: BLOOD SUGAR DIAGNOSTIC STRIP TEST SCH ×4 (00:58→18:10)
[2017-07-09] MEDS: GUAIFENESIN 200MG/10ML SUGAR FREE UDC GT SCH ×4 (02:00→20:00)
[2017-07-09] MEDS: LEVETIRACETAM 750 MG in SODIUM CHLORIDE 0.9% 100 ML IV SCH ×2 (03:33→15:43)
[2017-07-09] MEDS: IPRATROPIUM/ALBUTEROL 0.5-3(2.5)MG/3ML NEB HHN SCH ×4 (03:48→21:32)
[2017-07-09] MEDS: INSULIN LISPRO 100 UNITS/ML SUBCUT SCH ×4 (06:00→18:00)
[2017-07-09 06:36] LABS: HEMATOCRIT. 33.7 % (36.0-48.0); MEAN CORPUSCULAR HEMOGLOBIN 29.9 pg (28.0-32.0); MEAN CORPUSCULAR VOLUME 91.7 fL (81.0-99.0); MEAN PLATELET VOLUME 12.3 fl (7.4-10.4); PLATELET 141 x1000/uL (130-400); RED BLOOD CELL COUNT 3.68 mill/uL (4.2-5.4); RED CELL DISTRIBUTION WIDTH 13.7 % (11.6-14.6)
[2017-07-09 08:23] LABS: CARBON DIOXIDE 30 mEq/L (21-32); CHLORIDE 104 mEq/L (98-107)
[2017-07-09] MEDS: AMLODIPINE 5MG TABLET GT SCH ×2 (09:00→21:00)
[2017-07-09] MEDS: DOCUSATE SODIUM SUGAR FREE 100MG/10ML UDC GT SCH ×2 (09:00→17:00)
[2017-07-09] MEDS: HEPARIN 5000 UNITS/ML VIAL SUBCUT SCH ×2 (09:39→22:26)
[2017-07-09] MEDS: FAMOTIDINE 20MG/2ML VIAL IV SCH (09:39)
[2017-07-09] MEDS: BISACODYL 10MG SUPP PR SCH (09:40)
[2017-07-09] MEDS: POLYVINYL ALCOHOL OPHTH DROPS 15ML BOTHEYE SCH ×3 (09:40→18:17)
[2017-07-09 11:16] LABS: ATYPICAL LYMPHOCYTES 1
[2017-07-09 11:17] LABS: PLATELET ESTIMATE NORMAL
[2017-07-09] MEDS ORDERED: SORBITOL 70% SOLN 30ML PO SCH (13:00)
[2017-07-09] MEDS ORDERED: POTASSIUM CHLORIDE INJ 40 MEQ in DEXT 5% WATER 250 ML IV SCH (14:00)
[2017-07-09] MEDS: DEXT 5%/0.45% NACL KCL 20MEQ/L 1,000 ML IV SCH (18:16)
[2017-07-09 20:04] LABS: CARBON DIOXIDE 30 mEq/L (21-32); CHLORIDE 103 mEq/L (98-107)
[2017-07-09] MEDS: LEVOFLOXACIN 500MG PREMIX 100 ML IV SCH (22:26)
[2017-07-10] VITALS: BP 129/69
[2017-07-10] MEDS: BLOOD SUGAR DIAGNOSTIC STRIP TEST SCH ×4 (00:51→18:14)
[2017-07-10] MEDS: IPRATROPIUM/ALBUTEROL 0.5-3(2.5)MG/3ML NEB HHN SCH ×4 (01:07→20:10)
[2017-07-10] MEDS: GUAIFENESIN 200MG/10ML SUGAR FREE UDC GT SCH ×4 (01:51→21:56)
[2017-07-10 04:00] VITALS: BP 125/72
[2017-07-10] MEDS: LEVETIRACETAM 750 MG in SODIUM CHLORIDE 0.9% 100 ML IV SCH ×2 (04:00→15:54)
[2017-07-10] MEDS: INSULIN LISPRO 100 UNITS/ML SUBCUT SCH ×4 (06:00→18:00)
[2017-07-10 06:33] LABS: EOSINOPHILS % 0.7 % (0.0-5.0); HEMATOCRIT 35.8 % (36.0-48.0); HEMATOCRIT. 35.8 % (36.0-48.0); HEMOGLOBIN 11.7 g/dL (12.0-16.0); HEMOGLOBIN. 11.7 g/dL (12.0-16.0); MEAN CORPUSCULAR HEMOGLOBIN 29.9 pg (28.0-32.0); MEAN CORPUSCULAR VOLUME 91.4 fL (81.0-99.0); NEUTROPHILS % 78.3 % (40.0-76.0); PLATELET 159 x1000/uL (130-400); RED BLOOD CELL COUNT 3.92 mill/uL (4.2-5.4); RED CELL DISTRIBUTION WIDTH 13.8 % (11.6-14.6)
[2017-07-10 08:04] LABS: CHLORIDE 106 mEq/L (98-107)
[2017-07-10 08:11] LABS: CARBON DIOXIDE 29 mEq/L (21-32)
[2017-07-10] MEDS: DOCUSATE SODIUM SUGAR FREE 100MG/10ML UDC GT SCH ×2 (08:42→18:14)
[2017-07-10] MEDS: AMLODIPINE 5MG TABLET GT SCH ×2 (08:42→21:56)
[2017-07-10 08:48] VITALS: BP 120/58
[2017-07-10] MEDS: POLYVINYL ALCOHOL OPHTH DROPS 15ML BOTHEYE SCH ×3 (10:59→18:14)
[2017-07-10] MEDS: BISACODYL 10MG SUPP PR SCH (10:59)
[2017-07-10] MEDS: HEPARIN 5000 UNITS/ML VIAL SUBCUT SCH ×2 (11:06→21:57)
[2017-07-10] MEDS: FAMOTIDINE 20MG/2ML VIAL IV SCH (11:06)
[2017-07-10] MEDS ORDERED: BISACODYL 10MG SUPP PR PRN (11:45)
[2017-07-10 12:30] VITALS: BP 120/59
[2017-07-10] MEDS: SORBITOL 70% SOLN 30ML PO SCH (13:00)
[2017-07-10 17:35] VITALS: BP 125/44
[2017-07-10] MEDS: DEXT 5%/0.45% NACL KCL 20MEQ/L 1,000 ML IV SCH (18:13)
[2017-07-10 20:00] VITALS: BP 120/53
[2017-07-10] MEDS: LEVOFLOXACIN 500MG PREMIX 100 ML IV SCH (21:57)
[2017-07-11] MEDS: BLOOD SUGAR DIAGNOSTIC STRIP TEST SCH ×4 (00:18→18:00)
[2017-07-11 00:39] VITALS: BP 117/62
[2017-07-11] MEDS: IPRATROPIUM/ALBUTEROL 0.5-3(2.5)MG/3ML NEB HHN SCH ×4 (01:40→21:26)
[2017-07-11] MEDS: LEVETIRACETAM 750 MG in SODIUM CHLORIDE 0.9% 100 ML IV SCH ×2 (02:06→16:11)
[2017-07-11] MEDS: GUAIFENESIN 200MG/10ML SUGAR FREE UDC GT SCH ×4 (02:06→20:33)
[2017-07-11 04:00] VITALS: BP 103/58
[2017-07-11] MEDS: INSULIN LISPRO 100 UNITS/ML SUBCUT SCH ×4 (05:35→17:48)
[2017-07-11 08:00] VITALS: BP 124/62
[2017-07-11] MEDS: POLYVINYL ALCOHOL OPHTH DROPS 15ML BOTHEYE SCH ×3 (08:42→17:51)
[2017-07-11] MEDS: SORBITOL 70% SOLN 30ML PO SCH (08:43)
[2017-07-11] MEDS: DOCUSATE SODIUM SUGAR FREE 100MG/10ML UDC GT SCH ×2 (08:43→17:50)
[2017-07-11] MEDS: FAMOTIDINE 20MG/2ML VIAL IV SCH (08:43)
[2017-07-11] MEDS: AMLODIPINE 5MG TABLET GT SCH ×2 (08:44→20:32)
[2017-07-11] MEDS: HEPARIN 5000 UNITS/ML VIAL SUBCUT SCH ×2 (08:44→20:34)
[2017-07-11] MEDS: DEXT 5%/0.45% NACL KCL 20MEQ/L 1,000 ML IV SCH (11:22)
[2017-07-11 11:50] VITALS: BP 126/57
[2017-07-11 16:24] VITALS: BP 128/63
[2017-07-11 17:23] LABS: HEMATOCRIT. 34.6 % (36.0-48.0); HEMOGLOBIN. 11.2 g/dL (12.0-16.0); MEAN CORPUSCULAR HEMOGLOBIN 29.6 pg (28.0-32.0); MEAN CORPUSCULAR VOLUME 91.5 fL (81.0-99.0); MEAN PLATELET VOLUME 12.3 fl (7.4-10.4); PLATELET 139 x1000/uL (130-400); RED BLOOD CELL COUNT 3.78 mill/uL (4.2-5.4); RED CELL DISTRIBUTION WIDTH 13.6 % (11.6-14.6)
[2017-07-11 18:01] LABS: CARBON DIOXIDE 33 mEq/L (21-32); CHLORIDE 101 mEq/L (98-107)
[2017-07-11 20:00] VITALS: BP 109/40
[2017-07-11] MEDS: LEVOFLOXACIN 500MG PREMIX 100 ML IV SCH (20:33)
[2017-07-11 21:14] LABS: ATYPICAL LYMPHOCYTES 2; PLATELET ESTIMATE NORMAL
[2017-07-12] VITALS: BP 116/54
[2017-07-12] MEDS: IPRATROPIUM/ALBUTEROL 0.5-3(2.5)MG/3ML NEB HHN SCH ×4 (01:39→20:28)
[2017-07-12] MEDS: GUAIFENESIN 200MG/10ML SUGAR FREE UDC GT SCH ×4 (02:30→21:08)
[2017-07-12] MEDS: LEVETIRACETAM 750 MG in SODIUM CHLORIDE 0.9% 100 ML IV SCH ×2 (02:30→21:06)
[2017-07-12 04:00] VITALS: BP 136/58
[2017-07-12] MEDS: BLOOD SUGAR DIAGNOSTIC STRIP TEST SCH ×4 (05:39→18:09)
[2017-07-12] MEDS: INSULIN LISPRO 100 UNITS/ML SUBCUT SCH ×4 (06:37→18:00)
[2017-07-12 08:00] VITALS: BP 123/60
[2017-07-12] MEDS: DOCUSATE SODIUM SUGAR FREE 100MG/10ML UDC GT SCH ×2 (10:11→17:00)
[2017-07-12] MEDS: SORBITOL 70% SOLN 30ML PO SCH (10:11)
[2017-07-12] MEDS: HEPARIN 5000 UNITS/ML VIAL SUBCUT SCH ×2 (10:12→21:45)
[2017-07-12] MEDS: FAMOTIDINE 20MG/2ML VIAL IV SCH (10:12)
[2017-07-12] MEDS: POLYVINYL ALCOHOL OPHTH DROPS 15ML BOTHEYE SCH ×3 (10:13→18:53)
[2017-07-12] MEDS: AMLODIPINE 5MG TABLET GT SCH ×2 (10:13→21:46)
[2017-07-12 12:00] VITALS: BP 114/60
[2017-07-12] MEDS: DEXT 5%/0.45% NACL KCL 20MEQ/L 1,000 ML IV SCH (13:48)
[2017-07-12 16:00] VITALS: BP 126/61
[2017-07-12 20:00] VITALS: BP 133/59
[2017-07-12] MEDS: LEVOFLOXACIN 500MG PREMIX 100 ML IV SCH (21:48)
[2017-07-13] VITALS: BP 126/57
[2017-07-13] MEDS: BLOOD SUGAR DIAGNOSTIC STRIP TEST SCH ×4 (00:02→18:12)
[2017-07-13] MEDS: INSULIN LISPRO 100 UNITS/ML SUBCUT SCH ×4 (00:05→18:17)
[2017-07-13] MEDS: IPRATROPIUM/ALBUTEROL 0.5-3(2.5)MG/3ML NEB HHN SCH ×4 (01:56→22:17)
[2017-07-13] MEDS: GUAIFENESIN 200MG/10ML SUGAR FREE UDC GT SCH ×4 (03:25→20:25)
[2017-07-13 04:00] VITALS: BP 121/60
[2017-07-13] MEDS: LEVETIRACETAM 750 MG in SODIUM CHLORIDE 0.9% 100 ML IV SCH ×2 (06:38→18:16)
[2017-07-13 08:00] VITALS: BP 136/100
[2017-07-13] MEDS: POLYVINYL ALCOHOL OPHTH DROPS 15ML BOTHEYE SCH ×3 (09:42→18:16)
[2017-07-13] MEDS: DOCUSATE SODIUM SUGAR FREE 100MG/10ML UDC GT SCH ×2 (10:23→18:16)
[2017-07-13] MEDS: SORBITOL 70% SOLN 30ML PO SCH (10:23)
[2017-07-13] MEDS: FAMOTIDINE 20MG/2ML VIAL IV SCH (10:23)
[2017-07-13] MEDS: AMLODIPINE 5MG TABLET GT SCH ×2 (10:25→21:31)
[2017-07-13] MEDS: HEPARIN 5000 UNITS/ML VIAL SUBCUT SCH ×2 (10:26→21:32)
[2017-07-13 12:00] VITALS: BP 117/57
[2017-07-13] MEDS: DEXT 5%/0.45% NACL KCL 20MEQ/L 1,000 ML IV SCH (13:32)
[2017-07-13 16:00] VITALS: BP 124/59
[2017-07-13 20:00] VITALS: BP 134/66
[2017-07-13] MEDS: LEVOFLOXACIN 500MG PREMIX 100 ML IV SCH (21:30)
[2017-07-13] MEDS ORDERED: POTASSIUM CHLORIDE 20MEQ TABLET SR PO NR (22:45)
[2017-07-14] VITALS (7 sets, daily range): BP systolic 103–141; BP diastolic 51–73
[2017-07-14] MEDS: BLOOD SUGAR DIAGNOSTIC STRIP TEST SCH ×5 (00:19→23:47)
[2017-07-14] MEDS: INSULIN LISPRO 100 UNITS/ML SUBCUT SCH ×5 (00:22→23:48)
[2017-07-14] MEDS: GUAIFENESIN 200MG/10ML SUGAR FREE UDC GT SCH ×4 (01:53→21:54)
[2017-07-14] MEDS: DEXT 5%/0.45% NACL KCL 20MEQ/L 1,000 ML IV SCH ×2 (01:53→17:55)
[2017-07-14] MEDS: IPRATROPIUM/ALBUTEROL 0.5-3(2.5)MG/3ML NEB HHN SCH ×4 (02:06→22:08)
[2017-07-14] MEDS: LEVETIRACETAM 750 MG in SODIUM CHLORIDE 0.9% 100 ML IV SCH ×2 (05:22→17:55)
[2017-07-14 06:20] LABS: HEMATOCRIT. 35.1 % (36.0-48.0); HEMOGLOBIN. 11.5 g/dL (12.0-16.0); MEAN CORPUSCULAR HEMOGLOBIN 29.9 pg (28.0-32.0); MEAN CORPUSCULAR VOLUME 91.2 fL (81.0-99.0); MEAN PLATELET VOLUME 12.1 fl (7.4-10.4); PLATELET 142 x1000/uL (130-400); RED BLOOD CELL COUNT 3.84 mill/uL (4.2-5.4); RED CELL DISTRIBUTION WIDTH 13.8 % (11.6-14.6)
[2017-07-14] MEDS: POLYVINYL ALCOHOL OPHTH DROPS 15ML BOTHEYE SCH ×3 (08:43→17:55)
[2017-07-14] MEDS: SORBITOL 70% SOLN 30ML PO SCH (08:43)
[2017-07-14] MEDS: DOCUSATE SODIUM SUGAR FREE 100MG/10ML UDC GT SCH ×2 (08:43→17:55)
[2017-07-14] MEDS: FAMOTIDINE 20MG/2ML VIAL IV SCH (08:44)
[2017-07-14] MEDS: HEPARIN 5000 UNITS/ML VIAL SUBCUT SCH ×2 (08:45→21:55)
[2017-07-14] MEDS: AMLODIPINE 5MG TABLET GT SCH ×2 (08:45→21:56)
[2017-07-14 10:48] LABS: CARBON DIOXIDE 31 mEq/L (21-32); CHLORIDE 100 mEq/L (98-107)
[2017-07-14 11:46] LABS: PLATELET ESTIMATE NORMAL
[2017-07-14] MEDS: LEVOFLOXACIN 500MG PREMIX 100 ML IV SCH (21:54)
[2017-07-15] VITALS: BP 127/65
[2017-07-15] MEDS: IPRATROPIUM/ALBUTEROL 0.5-3(2.5)MG/3ML NEB HHN SCH ×4 (01:05→20:05)
[2017-07-15] MEDS: GUAIFENESIN 200MG/10ML SUGAR FREE UDC GT SCH ×4 (02:43→20:13)
[2017-07-15 04:00] VITALS: BP 124/67
[2017-07-15] MEDS: LEVETIRACETAM 750 MG in SODIUM CHLORIDE 0.9% 100 ML IV SCH ×2 (05:25→17:20)
[2017-07-15] MEDS: BLOOD SUGAR DIAGNOSTIC STRIP TEST SCH ×4 (05:31→23:15)
[2017-07-15] MEDS: INSULIN LISPRO 100 UNITS/ML SUBCUT SCH ×4 (05:33→23:17)
[2017-07-15 08:00] VITALS: BP 127/61
[2017-07-15] MEDS: DOCUSATE SODIUM SUGAR FREE 100MG/10ML UDC GT SCH ×2 (08:52→17:20)
[2017-07-15] MEDS: FAMOTIDINE 20MG/2ML VIAL IV SCH (08:52)
[2017-07-15] MEDS: HEPARIN 5000 UNITS/ML VIAL SUBCUT SCH ×2 (08:53→20:14)
[2017-07-15] MEDS: AMLODIPINE 5MG TABLET GT SCH ×2 (08:53→20:14)
[2017-07-15] MEDS: SORBITOL 70% SOLN 30ML PO SCH (08:53)
[2017-07-15] MEDS: POLYVINYL ALCOHOL OPHTH DROPS 15ML BOTHEYE SCH ×3 (08:53→17:20)
[2017-07-15 12:00] VITALS: BP 110/63
[2017-07-15] MEDS: DEXT 5%/0.45% NACL KCL 20MEQ/L 1,000 ML IV SCH ×2 (13:06→20:13)
[2017-07-15 20:00] VITALS: BP 129/67
[2017-07-15] MEDS: ASCORBIC ACID 250 MG TABLET PO SCH (20:13)
[2017-07-15] MEDS: LEVOFLOXACIN 500MG PREMIX 100 ML IV SCH (20:14)
[2017-07-16] VITALS: BP 133/67
[2017-07-16] MEDS: IPRATROPIUM/ALBUTEROL 0.5-3(2.5)MG/3ML NEB HHN SCH ×4 (00:53→21:29)
[2017-07-16] MEDS: GUAIFENESIN 200MG/10ML SUGAR FREE UDC GT SCH ×4 (01:20→20:49)
[2017-07-16 04:00] VITALS: BP 114/68
[2017-07-16] MEDS: LEVETIRACETAM 750 MG in SODIUM CHLORIDE 0.9% 100 ML IV SCH ×2 (05:18→17:05)
[2017-07-16] MEDS: BLOOD SUGAR DIAGNOSTIC STRIP TEST SCH ×4 (05:18→23:31)
[2017-07-16] MEDS: INSULIN LISPRO 100 UNITS/ML SUBCUT SCH ×4 (05:20→23:32)
[2017-07-16 08:00] VITALS: BP 126/74
[2017-07-16] MEDS: POLYVINYL ALCOHOL OPHTH DROPS 15ML BOTHEYE SCH ×3 (08:04→17:05)
[2017-07-16] MEDS: SORBITOL 70% SOLN 30ML PO SCH (08:04)
[2017-07-16] MEDS: FAMOTIDINE 20MG/2ML VIAL IV SCH (08:04)
[2017-07-16] MEDS: HEPARIN 5000 UNITS/ML VIAL SUBCUT SCH ×2 (08:04→20:50)
[2017-07-16] MEDS: DOCUSATE SODIUM SUGAR FREE 100MG/10ML UDC GT SCH ×2 (08:04→17:05)
[2017-07-16] MEDS: MULTIVITAMINS,THER W-MINERALS TABLET PO SCH (08:05)
[2017-07-16] MEDS: ZINC SULFATE 220 MG ( 50 ) CAPSULE PO SCH (08:05)
[2017-07-16] MEDS: ASCORBIC ACID 250 MG TABLET PO SCH ×2 (08:05→20:49)
[2017-07-16] MEDS: AMLODIPINE 5MG TABLET GT SCH ×2 (08:05→20:50)
[2017-07-16 12:00] VITALS: BP 115/55
[2017-07-16 16:00] VITALS: BP 152/72
[2017-07-16] MEDS: DEXT 5%/0.45% NACL KCL 20MEQ/L 1,000 ML IV SCH (17:05)
[2017-07-16 20:00] VITALS: BP 133/67
[2017-07-16] MEDS: ACETAMINOPHEN 650MG/20.3ML UDC GT PRN (23:42)
[2017-07-17] VITALS: BP 116/54
[2017-07-17] MEDS: GUAIFENESIN 200MG/10ML SUGAR FREE UDC GT SCH ×4 (02:12→21:26)
[2017-07-17] MEDS: IPRATROPIUM/ALBUTEROL 0.5-3(2.5)MG/3ML NEB HHN SCH ×4 (03:41→20:30)
[2017-07-17 04:00] VITALS: BP 114/65
[2017-07-17] MEDS: LEVETIRACETAM 750 MG in SODIUM CHLORIDE 0.9% 100 ML IV SCH ×2 (05:48→18:50)
[2017-07-17] MEDS: BLOOD SUGAR DIAGNOSTIC STRIP TEST SCH ×3 (05:48→17:24)
[2017-07-17] MEDS: INSULIN LISPRO 100 UNITS/ML SUBCUT SCH ×3 (05:49→18:00)
[2017-07-17 08:00] VITALS: BP 134/54
[2017-07-17] MEDS: AMLODIPINE 5MG TABLET GT SCH ×2 (09:22→21:27)
[2017-07-17] MEDS: ASCORBIC ACID 250 MG TABLET PO SCH ×2 (09:22→21:26)
[2017-07-17] MEDS: MULTIVITAMINS,THER W-MINERALS TABLET PO SCH (09:22)
[2017-07-17] MEDS: ZINC SULFATE 220 MG ( 50 ) CAPSULE PO SCH (09:23)
[2017-07-17] MEDS: SORBITOL 70% SOLN 30ML PO SCH (09:23)
[2017-07-17] MEDS: FAMOTIDINE 20MG/2ML VIAL IV SCH (09:23)
[2017-07-17] MEDS: POLYVINYL ALCOHOL OPHTH DROPS 15ML BOTHEYE SCH ×3 (09:23→17:59)
[2017-07-17] MEDS: HEPARIN 5000 UNITS/ML VIAL SUBCUT SCH ×2 (09:23→21:27)
[2017-07-17] MEDS: DOCUSATE SODIUM SUGAR FREE 100MG/10ML UDC GT SCH ×2 (09:24→17:59)
[2017-07-17 12:00] VITALS: BP 133/60
[2017-07-17] MEDS: DEXT 5%/0.45% NACL KCL 20MEQ/L 1,000 ML IV SCH (15:52)
[2017-07-17 16:00] VITALS: BP 116/56
[2017-07-17 17:29] LABS: HEMATOCRIT 35.2 % (36.0-48.0); HEMOGLOBIN 11.5 g/dL (12.0-16.0); PLATELET 144 x1000/uL (130-400); RED BLOOD CELL COUNT 3.83 mill/uL (4.2-5.4); RED CELL DISTRIBUTION WIDTH 14.6 % (11.6-14.6)
[2017-07-17 17:37] LABS: CARBON DIOXIDE 31 mEq/L (21-32); CHLORIDE 101 mEq/L (98-107)
[2017-07-17] MEDS ORDERED: POTASSIUM CHLORIDE 20MEQ TABLET SR PO NR (18:30)
[2017-07-17 20:00] VITALS: BP 136/64
[2017-07-17] MEDS: ACETAMINOPHEN 650MG/20.3ML UDC GT PRN (21:33)
[2017-07-18] VITALS: BP 108/52
[2017-07-18] MEDS: BLOOD SUGAR DIAGNOSTIC STRIP TEST SCH ×3 (00:04→12:25)
[2017-07-18] MEDS: INSULIN LISPRO 100 UNITS/ML SUBCUT SCH ×3 (00:22→12:48)
[2017-07-18] MEDS: IPRATROPIUM/ALBUTEROL 0.5-3(2.5)MG/3ML NEB HHN SCH ×2 (01:34→09:04)
[2017-07-18] MEDS: GUAIFENESIN 200MG/10ML SUGAR FREE UDC GT SCH ×3 (01:35→13:05)
[2017-07-18] MEDS: DEXT 5%/0.45% NACL KCL 20MEQ/L 1,000 ML IV SCH (02:00)
[2017-07-18 04:00] VITALS: BP 115/58
[2017-07-18] MEDS: LEVETIRACETAM 750 MG in SODIUM CHLORIDE 0.9% 100 ML IV SCH (05:30)
[2017-07-18 06:05] LABS: CARBON DIOXIDE 32 mEq/L (21-32); CHLORIDE 99 mEq/L (98-107)
[2017-07-18 08:00] VITALS: BP 121/64
[2017-07-18] MEDS: DOCUSATE SODIUM SUGAR FREE 100MG/10ML UDC GT SCH (08:42)
[2017-07-18] MEDS: HEPARIN 5000 UNITS/ML VIAL SUBCUT SCH (08:42)
[2017-07-18] MEDS: SORBITOL 70% SOLN 30ML PO SCH (08:42)
[2017-07-18] MEDS: ASCORBIC ACID 250 MG TABLET PO SCH (08:43)
[2017-07-18] MEDS: MULTIVITAMINS,THER W-MINERALS TABLET PO SCH (08:43)
[2017-07-18] MEDS: ZINC SULFATE 220 MG ( 50 ) CAPSULE PO SCH (08:43)
[2017-07-18] MEDS: FAMOTIDINE 20MG/2ML VIAL IV SCH (08:43)
[2017-07-18] MEDS: AMLODIPINE 5MG TABLET GT SCH (08:43)
[2017-07-18] MEDS: POLYVINYL ALCOHOL OPHTH DROPS 15ML BOTHEYE SCH ×2 (08:49→13:05)
[2017-07-18] MEDS ORDERED: POTASSIUM CHLORIDE 20MEQ TABLET SR PO NR (10:30)
[2017-07-18 12:09] VITALS: BP 116/48
[2017-07-18 13:36] VITALS: BP 116/48
[2017-07-18] MEDS ORDERED: LEVOFLOXACIN 500MG PREMIX 100 ML IV SCH (15:15)
== END 2017-07-18 14:27 | DRG 720 ==
LOC: ER 06:10 → 6EST 09:13 → ENRESERV 09:23 → 5WST 07-04 15:30
PROVIDERS: ADMIT Internal Medicine; ATTEND Internal Medicine
DX: A41.9 Sepsis, unspecified organism (principal); J96.20 Acute and chronic respiratory failure, unspecified whether with hypoxia or hypercapnia; E43 Unspecified severe protein-calorie malnutrition; G93.40 Encephalopathy, unspecified; K56.2 Volvulus; J18.9 Pneumonia, unspecified organism; F03.90 Unspecified dementia, unspecified severity, without behavioral disturbance, psychotic disturbance, mood disturbance, and anxiety; E88.09 Other disorders of plasma-protein metabolism, not elsewhere classified; E11.9 Type 2 diabetes mellitus without complications; J44.0 Chronic obstructive pulmonary disease with (acute) lower respiratory infection; K56.7 Ileus, unspecified; J44.1 Chronic obstructive pulmonary disease with (acute) exacerbation; E86.0 Dehydration; G40.909 Epilepsy, unspecified, not intractable, without status epilepticus; E87.6 Hypokalemia; I10 Essential (primary) hypertension; E78.00 Pure hypercholesterolemia, unspecified; E03.9 Hypothyroidism, unspecified; Z86.73 Personal history of transient ischemic attack (TIA), and cerebral infarction without residual deficits; Z79.4 Long term (current) use of insulin; Z75.1 Person awaiting admission to adequate facility elsewhere; Z93.1 Gastrostomy status; Z68.29 Body mass index [BMI] 29.0-29.9, adult; Z86.718 Personal history of other venous thrombosis and embolism; Z93.3 Colostomy status; Z79.899 Other long term (current) drug therapy; Z88.8 Allergy status to other drugs, medicaments and biological substances
CPT/HCPCS: 36415; 71045; 74018; 74177; 80048; 80051; 80053; 81001; 82088; 82533; 82962; 83036; 83605; 83735; 84132; 85025; 85027; 87040; 87086; 93005; 93970; 94640; 94664; 96360; 96361; 97165; 97535; 99285; A6261; C1893; J1644; J1815; J1953; J1956; J2930; J3480; J3490; J7030; J7040; J7050; J7060; J7608; J7620; Q9963; Q9967; A4315